=== PATIENT | female | born 1990 | race Hispanic/Latino ===

== ENCOUNTER 2016-11-01 02:44 | Emergency (ER) | payer SELFPAY ==
[2016-11-01 02:49] VITALS: BP 138/74; PULSE 64; RESP 17; TEMP 98; O2SAT 98
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
== END 2016-11-01 05:08 | disposition home or self-care (01) ==
LOC: H.ER 02:44
DX: S00.83XA Contusion of other part of head, initial encounter (principal); Y04.0XXA Assault by unarmed brawl or fight, initial encounter; Y92.89 Other specified places as the place of occurrence of the external cause; M79.7 Fibromyalgia; F41.9 Anxiety disorder, unspecified